=== PATIENT | male | born 1995 | race Two or more races ===

== ENCOUNTER 2017-05-03 21:22 | Emergency (ER) | payer SELFPAY ==
[~2017-05-03] VITALS: Ht 172.7 cm; Wt 72.6 kg
[2017-05-03] MEDS ORDERED: diphenhdrAMINE HCL 50 MG/1 ML VL ONE (21:30)
[2017-05-03] MEDS ORDERED: LORazepam 2MG/ML-1ML VIAL ONE (21:30)
[2017-05-03] MEDS ORDERED: HALOPERIDOL LACTATE 5 MG/ML INJ VIAL ONE (21:31)
[2017-05-03 22:52] LABS: Basophils # (auto) 0 uL; Basophils % (auto) 0.3 % (0.0-2.0); Eosinophils # (auto) 0 uL; Hematocrit 48.6 % (41.0-53.0); Hemoglobin 16.3 g/dL (13.5-17.5); Lymphocytes # (auto) 3.3 uL; Lymphocytes % (auto) 25.1 % (10.0-50.0); Mean Corpuscular Hemoglobin 28.7 pg (28.0-32.0); Mean Corpuscular Hgb Conc. 33.6 g/dL (32.0-36.0); Mean Corpuscular Volume 85.4 fL (80.0-100.0); Monocytes # (auto) 0.7 uL; Monocytes % (auto) 5.4 % (0.0-12.0); Neutrophils # (auto) 9.1 uL; Neutrophils % (auto) 69.2 % (37.0-80.0); Nucleated Red Blood Cells % 0.2 %; Platelet Count (auto) 280 10^3/uL (140-450); Red Blood Cells 5.69 10^6/uL (4.5-5.90); White Blood Cell 13.2 10^3/uL (4.4-10.8)
[2017-05-03 23:10] LABS: Acetaminophen < 2.0 ug/mL (10-30); Salicylate < 1.7 mg/dL (2.8-20.0)
[2017-05-03 23:14] LABS: Albumin 4.4 g/dL (3.4-5.0); Bilirubin, Total 0.5 mg/dL (0.2-1.0); Calcium 8.8 mg/dL (8.5-10.1); Potassium 3.5 mmol/L (3.5-5.1); Total Protein 8.7 g/dL (6.4-8.2)
[2017-05-03] MEDS ORDERED: LORazepam 2MG/ML-1ML VIAL IV ONE (23:15)
[2017-05-03] MEDS ORDERED: diphenhdrAMINE HCL 50 MG/1 ML VL IV ONE (23:15)
[2017-05-03] MEDS ORDERED: diphenhdrAMINE HCL 50 MG/1 ML VL IM ONE (23:15)
[2017-05-03] MEDS ORDERED: LORazepam 2MG/ML-1ML VIAL IM ONE (23:15)
[2017-05-03 23:27] LABS: Amphetamine Screen, Urine NEGATIVE (NEGATIVE); Barbiturate Scree,Urine NEGATIVE (NEGATIVE); Benzodiazephine Screen, Urine NEGATIVE (NEGATIVE); Cannabinoid Screen, Urine POSITIVE (NEGATIVE); Cocaine Screen, Urine NEGATIVE (NEGATIVE); Opiate Scree,Urine NEGATIVE (NEGATIVE); Phencyclidine Screen, Urine NEGATIVE (NEGATIVE)
[2017-05-03] MEDS ORDERED: THIAMINE INJ 100 MG, MULTIPLE VITAMIN 10 ML, FOLIC ACID 1 MG, MAGNESIUM SULF SDV 50% 8 ... IV ONE ×5 (23:45)
[2017-05-03] MEDS ORDERED: MVI in SODIUM CHLORIDE 0.9% 1,010 ML ONE (23:52)
[2017-05-03] MEDS ORDERED: FOLIC ACID 1 MG TAB ONE (23:52)
[2017-05-03 23:55] VITALS: BP 103/51
[2017-05-04] MEDS ORDERED: FOLIC ACID 1 MG TAB PO ONE (00:15)
== END 2017-05-04 01:28 | disposition home or self-care (01) ==
LOC: ER 21:22 → EDBD 21:22 → ER 05-04 01:28
DX: G92 Toxic encephalopathy (principal); R41.82 Altered mental status, unspecified; F17.210 Nicotine dependence, cigarettes, uncomplicated
CPT/HCPCS: 36415; 51702; 80053; 80307; 80320; 80329; 85025; 94761; 96365; 96372; 99284; J1200; J2060; J3411; J3475; J7030